=== PATIENT | male | born 1975 | race Caucasian/White ===

== ENCOUNTER 2023-03-08 10:36 | Emergency (ER) | payer OTHER, SELFPAY ==
[2023-03-08 10:55] VITALS: BP 111/75; PULSE 74; RESP 16; TEMP 36.4; O2SAT 97
--- NOTE | 2023-03-08 11:14 | ED.EAR ---
HPI - Ear Problem General Chief complaint: Ear Stated complaint: EAR CLOGGED Time Seen by Provider: 03/08/23 10:56 Source: patient, RN notes reviewed and old records reviewed Mode of arrival: ambulatory Limitations: no limitations History of Present Illness HPI Narrative: 47 year old male presents to [facility] care with complaints of decreased hearing and his bilateral ears feel clogged with symptoms greatest on left ear for the past few weeks with increasing symptoms. 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 Patient reports no symptoms of URI.Patient reports that he has put peroxide in his ears and used warm compresses with no improvement in his symptoms. MD Complaint: decreased hearing and other (ears feel clogged) Location: bilateral Severity: moderate Discharge from ear: Reports no Treatment prior to arrival: other (peroxide in ears and warm compresses) Related Data Home Medications Medication Instructions Recorded Confirmed No Home Medications 03/08/23 03/08/23 Allergies Allergy/AdvReac Type Severity Reaction Status Date / Time No Known Allergies Allergy Verified 03/08/23 10:54 Review of Systems Review of Systems: CONSTITUTIONAL: Denies fever, chills, or sweats. EYES: Denies visual changes, redness, or discharge. ENT: Denies rhinorrhea, congestion, sore throat, or otalgia, reports ears clogged and decreased hearing CARDIOVASCULAR: Denies chest pain, palpitations, or edema. RESPIRATORY: Denies cough or dyspnea. GASTROINTESTINAL: Denies abdominal pain, nausea, vomiting, or diarrhea. GENITOURINARY: Denies dysuria or hematuria. SKIN: Denies rash or itching. MUSCULOSKELETAL: Denies back pain, joint pain, or myalgia. NEUROLOGIC: Denies headache, numbness, or weakness. PSYCHIATRIC: Denies anxiety or depression. All systems reviewed & are unremarkable except as noted in HPI and below PMFSH Past Medical History Medical History (Updated 03/09/23 @ 00:12 by Steve Daliz) Disorder of ligament of right ankle Surgical History Surgical History (Updated 03/08/23 @ 11:27 by Akua Thomas NP) H/O hand surgery left middle finger Hx of appendectomy S/P left knee arthroscopy Family History Family History (Updated 03/08/23 @ 11:22 by Akua Thomas NP) Father Suicide Social History Social History (Updated 03/08/23 @ 11:20 by Akua Thomas NP) Smoking packs per day: 2 Smoking cigarettes per day: 40.0 Smoking status: Current every day smoker Tobacco type: cigarettes Alcohol intake: current Alcohol use details: social Substance use type: does not use Living arrangements: with family Gender identity (if verbalized by the patient): Male Comments At time of signature, agree with nursing past medical, surgical, social and family history. There is no relevant family history pertinent to the presenting complaint Exam Narrative: GENERAL: Well-appearing, well-nourished, and in no acute distress. HEAD: Normocephalic, atraumatic. EYES: PERRLA and EOMI. ENT: Nares clear, no rhinorrhea or epistaxis. Mucous membranes moist.TM's obscured by wax till irrigated with solution of hydrogen peroxide and warm water with TM's pink with good light reflex. NECK: Supple. no lymphadenopathy CHEST: Clear to auscultation. No respiratory distress.SAO2 97% on room air HEART: Regular rate and rhythm. No murmur heard. Normal peripheral pulses. ABDOMEN: Soft, nontender, nondistended, normal active bowel sounds. EXTREMITIES: Normal range of motion. No edema. SKIN: Warm, dry, no rash. NEURO: No focal deficits. Alert and oriented x3. Course Course Emergency Course: Patient is aware of diagnosis, understands and agrees to treatment plan.? Anticipatory guidance given.? Patient agrees to follow-up as directed and is aware of reasons to seek car
== END 2023-03-08 11:23 | disposition home or self-care (01) ==
PROVIDERS: Emergency Provider Registered Nurse; PCP Internal Medicine
DX: H61.23 Impacted cerumen, bilateral (principal); F17.210 Nicotine dependence, cigarettes, uncomplicated
CPT/HCPCS: 69209; 99212; G0463

== ENCOUNTER 2024-08-13 14:20 | Emergency (ER) | payer OTHER, SELFPAY ==
[2024-08-13 14:32] VITALS: BP 118/80; PULSE 97; RESP 16; TEMP 37.1; O2SAT 96
--- NOTE | 2024-08-13 14:56 | ED_ITS ---
HPI - Nausea/Vomiting/Diarrhea General Chief complaint: Abdominal Pain Stated complaint: Stomach Pain/Diarrhea Time Seen by Provider: 08/13/24 14:39 Source: patient and RN notes reviewed Mode of arrival: ambulatory Limitations: no limitations History of Present Illness HPI Narrative: Patient presents today complaining of lower abdominal cramping that started yesterday tonal regulator then diarrhea that started last night with intermittent cramping. Patient states he has a stool approximately every 2 hours that is water. Denies blood or mucus in the stool. He has not had any food for over 2 days but is drinking fluids normally and having normal urine output. Does report some lightheadedness. Denies fever or any urinary symptoms. He has tried some Tylenol and Aleve with little relief. Related Data Home Medications ?Medication ?Instructions ?Recorded ?Confirmed ?Last Taken ?Type No Home Medications 03/08/23 03/08/23 Unknown History Allergies Allergy/AdvReac Type Severity Reaction Status Date / Time No Known Allergies Allergy Verified 08/13/24 14:32 Review of Systems Review of Systems: CONSTITUTIONAL: Denies body aches, fever, chills, or sweats. EYES: Denies visual changes, redness, or discharge. ENT: Denies rhinorrhea, congestion, sore throat, or otalgia. CARDIOVASCULAR: Denies chest pain, palpitations, or edema. RESPIRATORY: Denies cough or dyspnea. GASTROINTESTINAL: Denies abdominal pain, nausea, vomiting. + diarrhea, abdominal cramping GENITOURINARY: Denies dysuria or hematuria. SKIN: Denies rash, itching, or wounds. MUSCULOSKELETAL: Denies back pain, joint pain, or myalgia. NEUROLOGIC: Denies headache, numbness, tingling, or weakness. PSYCH: Denies depression or anxiety. [facility] Past Medical History Medical History Disorder of ligament of right ankle Surgical History Surgical History S/P left knee arthroscopy H/O hand surgery left middle finger Hx of appendectomy Family History Family History Father Suicide Social History Social History Smoking packs per day: 2 Smoking cigarettes per day: 40.0 Smoking status: Current every day smoker Tobacco type: cigarettes Alcohol intake: current Alcohol use details: social Substance use type: does not use Living arrangements: with family Gender identity (if verbalized by the patient): Male Comments At time of signature, I have reviewed and agree with nursing past medical, surgical, social and family history unless otherwise noted. Please see nursing chart for further information. There is no relevant family history pertinent to the presenting complaint Exam Narrative: GENERAL: Well-appearing, well-nourished, and in no acute distress. HEAD: Normocephalic, atraumatic. EYES: EOMI. No redness or drainage. Conjunctivae normal. ENT: Mucous membranes pink and moist. NECK: Normal AROM. CHEST: No respiratory distress. Clear to auscultation. HEART: Regular rate and rhythm. No murmur appreciated. Normal peripheral pulses. ABDOMEN: Soft, nontender, nondistended, normal active bowel sounds. EXTREMITIES: Normal range of motion. No edema. SKIN: Warm, dry, no rash. Capillary refill normal. Normal skin turgor. NEURO: No focal deficits. Alert and oriented x3. Gait steady. PSYCH: Normal affect. No signs of depression or anxiety. Course Course Level of Care: Express Care Visit Vital Signs Vital signs: Vital Signs Temperature 98.8 F 08/13/24 14:32 Pulse Rate 97 08/13/24 14:32 Respiratory Rate 16 08/13/24 14:32 Blood Pressure 118/80 08/13/24 14:32 Pulse Oximetry 96 08/13/24 14:32 Temperature 98.8 F 08/13/24 14:32 Pulse Rate 97 08/13/24 14:32 Respiratory Rate 16 08/13/24 14:32 Blood Pressure 118/80 08/13/24 14:32 Pulse Oximetry 96 08/13/24 14:32 Reviewed MDM - Nausea/Vomiting/Diarrhea MDM Narrative Medical decision making narrative: Patient likely has some self-limiting viral diarrhea. Discussed pros and cons of using Imodium. Patient works for [employer] and typically does not have ready access to a restroom while working. Discussed that he needs to start taking in some food as this is probably why he is lightheaded. He does not have an acute abdomen or any abdominal tenderness. ED precautions given. No prescription medications indicated at this time. Differential Diagnosis Differential diagnosis: Likely food poisoning, gastroenteritis and dehydration Critical Care Time Critical Care Time Critical Care Time: No Discharge Plan Discharge Clinical Impression: Diarrhea Qualifiers: Diarrhea type: unspecified type Qualified Code(s): R19.7 - Diarrhea, unspecified Patient Disposition: Home, Self-Care Condition: Stable Instructions: Acute Diarrhea (ED) Additional Instructions: Your diarrhea is likely self-limiting. Use Imodium only as needed as discussed. Continue to stay hydrated with fluids. Rest. If you feel that your symptoms are worsening or you are feeling dehydrated, please go to the ER immediately for further evaluation. Patient Language: Tuvaluan Prescriptions: No Action No Home Medications Follow-up/Referrals: Tuvaluan,Ab Leyva MD [Primary Care Provider] - Stand Alone Forms: Work/School Release IP Time of Disposition: 15:01
== END 2024-08-13 15:03 | disposition home or self-care (01) ==
PROVIDERS: Emergency Provider Nurse Practitioner; PCP Internal Medicine
DX: R19.7 Diarrhea, unspecified (principal); F17.210 Nicotine dependence, cigarettes, uncomplicated
CPT/HCPCS: 99211; G0463